=== PATIENT | female | born 1950 ===

== ENCOUNTER 2023-04-19 16:26 | Outpatient (REF) | payer MEDICARE, SELFPAY ==
[2023-04-19 18:04] LABS: Bilirubin Negative (Negative); Blood Small (Negative); Clarity Cloudy (Clear); Glucose Negative (Negative); Ketones Negative (Negative); Leukocyte Esterase Large (Negative); Nitrite Positive (Negative); Urobilinogen 0.2 mg/dL (Up to 0.2); pH 6.5 (5-8)
[2023-04-19 18:18] LABS: Bacteria Many HPF (Negative); C & S Indicated? Yes; WBC >50 HPF (0-5)
== END 2023-04-19 16:27 | disposition home or self-care (01) ==
LOC: LBN 16:26
PROVIDERS: Visit Provider Radiology Radiation Oncology
DX: R39.15 Urgency of urination (principal); R82.79 Other abnormal findings on microbiological examination of urine
CPT/HCPCS: 87077; 81003; 81015; 87086; 87186